=== PATIENT | male | born 1950 | race Caucasian/White ===

== ENCOUNTER 2021-05-09 15:19 | Inpatient (IN) ==
[2021-05-09] MEDS ORDERED: ONDANSETRON 4 MG/2 ML VIAL IV PRN (16:49)
[2021-05-09] MEDS ORDERED: ACETAMINOPHEN 325 MG TABLET PO PRN (16:49)
[2021-05-09 16:57] LABS: Basophils # 0.1 10*3/uL (0.0-0.2); Basophils % 0.6 % (0.0-0.8); Eosinophils # 0.2 10*3/uL (0.0-0.87); Eosinophils % 1.7 % (0.00-10.9); Hematocrit 44.4 VOL% (42.0-52.0); Hemoglobin 14.8 GM/DL (14.0-18.0); Immature Granulocytes % 0.6 %; Immature Granulocytes Absolute 0.05 #; Lymphocytes # 1.7 10*3/uL (1.4-4.0); Lymphocytes % 18.8 % (21.2-54.2); Mean Corpuscular HGB Conc 33.3 GM/DL (32-36); Mean Corpuscular Volume 91.7 FL (87-102); Mean Platelet Volume 8.9 FL (9.6-12.0); Monocytes % 5.7 % (1.7-12.7); Neutrophils % 72.6 % (38.7-73.9); Platelet Count 294 T/CUMM (130-400); Red Blood Count 4.84 MC/CUMM (3.8-5.5); Red Cell Distribution Width 14.1 % (9.3-17.3); White Blood Count 8.9 T/CUMM (4-12)
[2021-05-09 17:13] LABS: Potassium 3.5 MMOL/L (3.5-5.1)
[2021-05-09 17:25] LABS: INR 1.1
[2021-05-10] MEDS: LEVOTHYROXINE 88 MCG TABLET PO SCH (08:37)
[2021-05-10] MEDS: METOPROLOL SUCCINATE XL 25 MG TABLET PO SCH (08:40)
[2021-05-10] MEDS: LOSARTAN 50 MG TABLET PO SCH (08:40)
[2021-05-10] MEDS: PANTOPRAZOLE 40 MG TABLET PO SCH (08:40)
[2021-05-10] MEDS ORDERED: ePHEDrine 50 MG/ML VIAL ONE (10:03)
[2021-05-10] MEDS ORDERED: LIDOCAINE 2% 5 ML VIAL ONE (10:08)
[2021-05-10] MEDS ORDERED: propofoL 200 MG/20 ML VIAL IV ONE (10:08)
[2021-05-10] MEDS ORDERED: DEXAMETHASONE 4 MG/1 ML VIAL ONE (10:10)
[2021-05-10] MEDS ORDERED: ONDANSETRON 4 MG/2 ML VIAL ONE (10:10)
[2021-05-10] MEDS ORDERED: ceFAZolin 1,000 MG VIAL ONE (10:14)
[2021-05-10] MEDS ORDERED: SODIUM CHLORIDE 0.9% 1,000 ML IV ONE (11:19)
[2021-05-10] MEDS ORDERED: SEVOFLURANE 1 UNIT/15 MINUTE INH ONE (11:19)
[2021-05-11 05:44] LABS: Basophils % 0.4 % (0.0-0.8); Eosinophils # 0.1 10*3/uL (0.0-0.87); Eosinophils % 1.6 % (0.00-10.9); Hematocrit 34.3 VOL% (42.0-52.0); Hemoglobin 10.7 GM/DL (14.0-18.0); Immature Granulocytes % 0.4 %; Immature Granulocytes Absolute 0.03 #; Lymphocytes # 2.2 10*3/uL (1.4-4.0); Lymphocytes % 31.7 % (21.2-54.2); Mean Corpuscular HGB Conc 31.2 GM/DL (32-36); Mean Corpuscular Volume 93.2 FL (87-102); Mean Platelet Volume 9.1 FL (9.6-12.0); Monocytes % 8.9 % (1.7-12.7); Platelet Count 240 T/CUMM (130-400); Red Blood Count 3.68 MC/CUMM (3.8-5.5); Red Cell Distribution Width 14.2 % (9.3-17.3); White Blood Count 6.9 T/CUMM (4-12)
[2021-05-11] MEDS: LEVOTHYROXINE 88 MCG TABLET PO SCH (06:00)
[2021-05-11 06:08] LABS: Osmolality,Calculated 282.4 MOS/KG (273-304); Potassium 3.3 MMOL/L (3.5-5.1)
[2021-05-11 06:47] LABS: Eosinophils 2 % (0-10); Hypochromasia Slight; Lymphocytes 18 % (20-55); Platelet Estimate Normal; Segmented Neutrophils 77 % (50-85); Total Cells Counted 100
[2021-05-11] MEDS: PANTOPRAZOLE 40 MG TABLET PO SCH (08:26)
[2021-05-11] MEDS: LOSARTAN 50 MG TABLET PO SCH (08:27)
[2021-05-11] MEDS: METOPROLOL SUCCINATE XL 25 MG TABLET PO SCH (08:27)
[2021-05-11] MEDS ORDERED: MULTIVITAMIN (CENTRUM) TABLET PO SCH (09:00)
[2021-05-11 12:22] VITALS: BP 118/59
[2021-05-11] MEDS ORDERED: POTASSIUM CHLORIDE 20 MEQ TABLET PO ONE (12:31)
== END 2021-05-11 13:40 | disposition home or self-care (01) | DRG 481 ==
LOC: N.ED 15:19 → N.EDINP 16:49 → N.3E 18:18
PROVIDERS: ADMIT Family Medicine; ATTEND Family Medicine